=== PATIENT | female | born 2005 | race Caucasian/White ===

== ENCOUNTER 2024-08-01 17:17 | Emergency (ER) | payer MEDICAID ==
[~2024-08-01] VITALS: Ht 172.7 cm; Wt 78.0 kg
[2024-08-01 17:22] VITALS: BP 110/68; PULSE 94; RESP 18; TEMP 98.6; O2SAT 98
== END 2024-08-01 22:42 | disposition left against medical advice (07) ==
LOC: ER 17:17
DX: H57.10 Ocular pain, unspecified eye (principal); Z53.21 Procedure and treatment not carried out due to patient leaving prior to being seen by health care provider